=== PATIENT | female | born 1975 | race Caucasian/White ===

== ENCOUNTER 2019-03-01 15:25 | Outpatient (CLI) | payer BC ==
--- NOTE | 2019-03-01 15:58 | RAD ---
XR Wrist 3 Rt View STANDARD: 03/01/2019 12:00 AM CLINICAL INDICATION: Pain COMPARISON: None. FINDINGS: Fracture:No fracture. Arthropathy:Scattered presumed degenerative cyst formation of the carpus, and mild osteophytosis. Incidental findings:None of significance. IMPRESSION: 1. No acute osseous abnormality.
== END 2019-03-01 15:26 | disposition home or self-care (01) ==
LOC: RAD-FRANK 15:25
PROVIDERS: ATTEND Nurse Practitioner Family
DX: M25.531 Pain in right wrist (principal)

== ENCOUNTER 2019-10-20 09:41 | Outpatient (CLI) | payer BC ==
--- NOTE | 2019-10-20 10:53 | CT ---
CT OF THE ABDOMEN WITH IV CONTRAST INDICATION: 43-year-old female with history of pancreatic pseudocyst and constipation. History of a p rior partial pancreatectomy, splenectomy and cholecystectomy. COMPARISON: Prior CT the abdomen and pelvis with contrast dated September 06, 2018. FINDINGS: ABDOMEN: Lung bases: Clear Liver: No focal lesion. Gallbladder: Normal appearing. Pancreas: Postsurgical change of a prior resection of the pancreatic tail. The peripherally calcified pseudocyst, adjacent to the pancreatic body on image 34 series 2 measures 4.8 x 4.9 cm. This is slightly more prominent than on the prior examination where it measured 4.6 x 4.6 cm. Adrenal glands: Normal. Spleen: Surgically absent. Small splenules are present within the splenic bed, stable to the prior ex am. Kidneys and ureters: There is a new 3 mm nonobstructing calculus within the superior pole of the righ t kidney. Left kidney is normal-appearing. Vasculature: Normal. Lymph nodes:No lymphadenopathy. Free fluid in abdomen:No free fluid is evident. Visualized bowel: Moderate amount of retained stool seen within the visualized colon. Osseous structures: No acute osseous abnormality. No destructive osteolytic or osteoblastic lesion i s identified. There is scattered degenerative and osteoarthritic changes. Soft tissues:Normal. IMPRESSION: 1. Very minimal enlargement of the chronic pancreatic pseudocyst 2. Moderate amount of retained stool within the colon. 3. New right nephrolithiasis 4. Stable postsurgical change of a partial pancreatectomy, splenectomy and cholecystectomy.
[2019-10-20] MEDS ORDERED: Iopamidol-370 76% 500 ML 1 ML ONE (14:30)
== END 2019-10-20 09:42 | disposition home or self-care (01) ==
LOC: BICCT 09:41
PROVIDERS: ATTEND Internal Medicine Gastroenterology
DX: K86.3 Pseudocyst of pancreas (principal); K59.00 Constipation, unspecified; N20.0 Calculus of kidney; Z90.81 Acquired absence of spleen; Z90.411 Acquired partial absence of pancreas; Z90.49 Acquired absence of other specified parts of digestive tract
CPT/HCPCS: 74160; Q9967